=== PATIENT | male | born 1975 | race Caucasian/White ===

== ENCOUNTER 2021-03-24 12:22 | Emergency (ER) | payer MEDICARE ==
[~2021-03-24] VITALS: Ht 193 cm; Wt 110.0 kg
[~2021-03-24 12:22] MED LIST: EFFEXOR PO; FENT1PAT19 TP; GABA600T7 PO; HYDR-2769 PO; PRAZ1CAP2 PO; RELAFEN PO; RISP2TAB78 PO; TRAZ-123 PO; VALP250C PO
[2021-03-24 12:56] LABS: BILIRUBIN,URINE NEGATIVE (NEG); CLARITY,URINE CLEAR; COLOR,URINE YELLOW; NITRITE,URINE NEGATIVE (NEG); PH,URINE 7.5 (<5.0-8.0); PROTEIN,URINE NEGATIVE (NEG-TRACE)
--- NOTE | 2021-03-24 12:59 | PHYS DOC ---
Past Medical History Past Medical History: Other Additional Past Medical Histor: CHRONIC BACK PAIN, SELF CATHS,TBI (CARLOS LEE ROR ENGINEER) Past Surgical History: Other Additional Past Surgical Histo: BACK SURG X 2,STIMULATOR IN BACK,PLATES PLACED IN HEAD & FACE,ORTHOPEDIC (CARLOS LEE ROR ENGINEER) Smoking Status: Current Every Day Smoker Alcohol Use: None Drug Use: None (CARLOS LEE ROR ENGINEER) General Adult EDM: Chief Complaint: GROIN PAIN HPI: HPI: Patient is a 45 year old male who presents with last night began having right testicular pain that sharp shooting goes up into the groin. He states he is able to urinate. He denies any sexual intercourse or concern for sexual transmitted diseases. He denies any drainage from his penis. He is he does have some nausea but no vomiting. He denies fever, blood in urine, new back pain, chest pain, shortness of breath, headache, dizziness, vomiting, testicular injury. Rates his pain at a 7 out of 10. (CARLOS LEE ROR ENGINEER) Review of Systems: Review of Systems: Constitutional: Denies fever or chills. [] Eyes: Denies change in visual acuity. [] HENT: Denies nasal congestion or sore throat. [] Respiratory: Denies cough or shortness of breath. [] Cardiovascular: Denies chest pain or edema. [] GI: + Right lower abdominal pain,+nausea, denies vomiting, bloody stools or diarrhea. [] : Denies dysuria. + Right testicle pain [] Musculoskeletal: Denies back pain or joint pain. [] Integument: Denies rash. [] Neurologic: Denies headache, focal weakness or sensory changes. [] Endocrine: Denies polyuria or polydipsia. [] Lymphatic: Denies swollen glands. [] Psychiatric: Denies depression or anxiety. [] (CARLOS LEE ROR ENGINEER) Heart Score: C/O Chest Pain: No Risk Factors: Risk Factors: DM, Current or recent (<one month) smoker, HTN, HLP, family history of CAD, obesity. Risk Scores: Score 0 - 3: 2.5% MACE over next 6 weeks - Discharge Home Score 4 - 6: 20.3% MACE over next 6 weeks - Admit for Clinical Observation Score 7 - 10: 72.7% MACE over next 6 weeks - Early Invasive Strategies (CARLOS LEE APRN) Current Medications: Current Medications Medications (Trade) Dose Ordered Sig/Edwardo Start Time Stop Time Status Last Admin Dose Admin Fentanyl Citrate (Fentanyl 2ml Vial) 50 mcg 1X ONCE 03/24/21 13:00 03/24/21 13:01 (CARLOS LEE APRN) Allergies: Allergies: Allergies Coded Allergies Type Severity Reaction Last Updated Verified No Known Drug Allergies 09/03/15 No (CARLOS LEE APRN) Physical Exam: PE: Constitutional: Well developed, well nourished, no acute distress, non-toxic appearance. [] HENT: Normocephalic, atraumatic, bilateral external ears normal, oropharynx moist, no oral exudates, nose normal. [] Eyes: PERRLA, EOMI, conjunctiva normal, no discharge. [] Neck: Normal range of motion, no tenderness, supple, no stridor. [] Cardiovascular:Heart rate regular rhythm, no murmur [] Lungs & Thorax: Bilateral breath sounds clear to auscultation [] Abdomen: Bowel sounds normal, soft, no tenderness, no masses, no pulsatile masses. [] Skin: Warm, dry, no erythema, no rash. [] Back: No tenderness, no CVA tenderness. [] Extremities: No tenderness, no cyanosis, no clubbing, ROM intact, no edema. [] Neurologic: Alert and oriented X 3, normal motor function, normal sensory function, no focal deficits noted. [] Psychologic: Affect normal, judgement normal, mood normal. Normal physical exam [] (CARLOS LEE APRN) EKG: EKG: [] (CARLOS LEE APRN) Radiology/Procedures: Radiology/Procedures: [] Impression: [facility] [address] [place] [address] IMAGING REPORT Signed PATIENT: TARA NARANJO: [id number] : 1975 LOCATION: ER AGE: 45 SEX: M EXAM STATUS: REG ER ORD. PHYSICIAN: CARLOS LEE APRN REASON: testicle pain PROCEDURE: TESTICULAR/SCROTUM EXAM: Scrotal sonogram. HISTORY: Right testicular pain. TECHNIQUE: Short scale and color Doppler sonographic imaging of the scrotum with spectral waveform analysis was performed. COMPARISON: None. FINDINGS: The testes are normal in size and demonstrate normal symmetric blood flow. No focal testicular parenchymal lesion is seen. The epididymides are unremarkable. There are small bilateral hydroceles. There are loops of bowel within the right lower quadrant at the site of reported pain. The appendix is reportedly surgically absent. IMPRESSION: 1. Unremarkable testes. 2. Small bilateral hydroceles. Electronically signed by: Bre Jasmine MD (03/24/2021 1:42 PM) [id number] DICTATED and SIGNED BY: BRE JASMINE MD DATE: 03/24/21 [id number] [facility] [address] [place] [address] IMAGING REPORT Signed PATIENT: TARA NARANJO SACCOUNT: [id number] : 1975 LOCATION: ER AGE: 45 SEX: M EXAM STATUS: REG ER ORD. PHYSICIAN: CARLOS LEE APRN REASON: right groin sharp shooting and testicle pain PROCEDURE: CT ABDOMEN PELVIS WO CONTRAST PQRS Compliance Statement: One or more of the following individualized dose reduction techniques were utilized for this examination: 1. Automated exposure control 2. Adjustment of the mA and/or kV according to patient size 3. Use of iterative reconstruction technique CT ABDOMEN+PELVIS WO Clinical Indication: Reason: right groin sharp shooting and testicle pain / Spl. Instructions: / History: Comparison: Testicular ultrasound, same day. Technique: Helical CT imaging of the abdomen and pelvis is performed without IV or oral contrast. Findings: Evaluation of solid organs and bowel is limited without oral and IV contrast, decreasing sensitivity for detection of pathology. Lung bases are clear. Cardiac size is normal. Gallbladder is contracted, limiting evaluation. The liver, spleen, pancreas, adrenal glands, abdominal aorta, and kidneys are normal. Stomach is unremarkable. There is no small bowel obstruction. The appendix is not seen, no secondary signs of appendicitis. There is scattered stool in the colon. No colon wall thickening is seen. No abdominal adenopathy or free fluid. The urinary bladder is not well distended accentuating the wall thickness. The prostate and seminal vesicles are normal. There is no pelvic free fluid. There is no inguinal hernia or adenopathy. The testicles are better evaluated on same- day ultrasound. There is posterior fusion of L4-S1. The bilateral S1 screws are fractured. There is a left lower back battery pack and spinal stimulator leads there is minimal left convexity lumbar scoliosis. IMPRESSION: No acute abdominal or pelvic abnormality. Electronically signed by: Willard Agustin MD (03/24/2021 2:04 PM) [id number] DICTATED and SIGNED BY: WILLARD AGUSTIN MD DATE: 03/24/21 [id number] 0 (CARLOS LEE APRN) Course & Med Decision Making: Course & Med Decision Making Pertinent Labs and Imaging studies reviewed. (See chart for details) See HPI. Alert and oriented x4. Ambulatory to steady gait. Speaks in full clear sentences. Afebrile. Skin pink warm dry. No testicular swelling, cellulitis or tenderness. Abdomen is soft and nontender. No CVA tenderness. Blood work unremarkable. Urinalysis unremarkable. CT abdomen pelvis shows no acute findings. Ultrasound shows no acute findings but a couple of hydroceles. Patient agrees to follow-up at urology with his primary care physician. He has been take Tylenol or naproxen as needed. Patient agrees to this plan. [] (CARLOS LEE APRN) Dragon Disclaimer: Dragon Disclaimer: This electronic medical record was generated, in whole or in part, using a voice recognition dictation system. (CARLOS LEE APRN) Departure Departure Impression: Primary Impression: Groin pain Qualified Codes: R10.31 - Right lower quadrant pain Additional Impression: Testicle pain Qualified Codes: N50.811 - Right testicular pain Disposition: 01 HOME / SELF CARE / HOMELESS Condition: STABLE Referrals: RAFA PLUNKETT (PCP) Patient Instructions: Testicular Problems and Self-Exam Additional Instructions: Follow-up with urology or your primary care physician. Continue taking all medications as as prescribed. Attending Signature Attending Signature I have participated in the care of this patient and I have reviewed and agree with all pertinent clinical information above including history, exam, and recommendations. (ROBERT HINKLE MD) CARLOS LEE APRN Mar 24, 2021 12:59 ROBERT HINKLE MD Mar 26, 2021 06:43
[2021-03-24] MEDS ORDERED: fentaNYL PF VIAL 100 MCG/2 ML VIAL IVP ONE (13:00)
[2021-03-24 13:07] LABS: BACTERIA,URINE 0 /HPF (0-FEW); RBC,URINE 0 /HPF (0-2); WBC,URINE RARE /HPF (0-4)
[2021-03-24 13:18] LABS: BASO # 0.1 x10^3/uL (0.0-0.2); BASO % 1 % (0-3); EOS # 0.2 x10^3/uL (0.0-0.7); EOS % 3 % (0-3); HEMATOCRIT 39.8 % (39.0-53.0); HEMOGLOBIN 13.6 g/dL (13.0-17.5); LYMPH # 1.9 x10^3/uL (1.0-4.8); LYMPH % 22 % (24-48); MEAN CORPUSCULAR HEMOGLOBIN 31 pg (25-35); MEAN CORPUSCULAR HGB CONC 34 g/dL (31-37); MEAN CORPUSCULAR VOLUME 90 fL (79-100); MONO # 0.7 x10^3/uL (0.0-1.1); MONO % 8 % (0-9); NEUT # 5.8 x10^3/uL (1.8-7.7); NEUT % 66 % (31-73); PLATELET COUNT 197 x10^3/uL (140-400); RED CELL DISTRIBUTION WIDTH 14.1 % (11.5-14.5); WHITE BLOOD COUNT 8.7 x10^3/uL (4.0-11.0)
[2021-03-24 13:30] LABS: CALCIUM 8.4 mg/dL (8.5-10.1); CREATININE 1.1 mg/dL (0.7-1.3); GFR 72.1; POTASSIUM 4.4 mmol/L (3.5-5.1)
[2021-03-24 13:36] LABS: ALBUMIN 3.8 g/dL (3.4-5.0); ALBUMIN/GLOBULIN RATIO 1.5 (1.0-1.7); TOTAL BILIRUBIN 0.3 mg/dL (0.2-1.0); TOTAL PROTEIN 6.3 g/dL (6.4-8.2)
--- NOTE | 2021-03-24 13:44 | RAD ---
EXAM: Scrotal sonogram. HISTORY: Right testicular pain. TECHNIQUE: Short scale and color Doppler sonographic imaging of the scrotum with spectral waveform yee lysis was performed. COMPARISON: None. FINDINGS: The testes are normal in size and demonstrate normal symmetric blood flow. No focal testicu lar parenchymal lesion is seen. The epididymides are unremarkable. There are small bilateral hydrocel es. There are loops of bowel within the right lower quadrant at the site of reported pain. The append ix is reportedly surgically absent. IMPRESSION: 1. Unremarkable testes. 2. Small bilateral hydroceles. Electronically signed by: Bre Tracy MD (03/24/2021 1:42 PM) [id number]
--- NOTE | 2021-03-24 14:06 | RAD ---
PQRS Compliance Statement: One or more of the following individualized dose reduction techniques were utilized for this examinat ion: 1. Automated exposure control 2. Adjustment of the mA and/or kV according to patient size 3. Use of iterative reconstruction technique CT ABDOMEN+PELVIS WO Clinical Indication: Reason: right groin sharp shooting and testicle pain / Spl. Instructions: / His tory: Comparison: Testicular ultrasound, same day. Technique: Helical CT imaging of the abdomen and pelvis is performed without IV or oral contrast. Findings: Evaluation of solid organs and bowel is limited without oral and IV contrast, decreasing sensitivity for detection of pathology. Lung bases are clear. Cardiac size is normal. Gallbladder is contracted, limiting evaluation. The liver, spleen, pancreas, adrenal glands, abdomina l aorta, and kidneys are normal. Stomach is unremarkable. There is no small bowel obstruction. The appendix is not seen, no secondary signs of appendicitis. There is scattered stool in the colon. No colon wall thickening is seen. No ab dominal adenopathy or free fluid. The urinary bladder is not well distended accentuating the wall thickness. The prostate and seminal v esicles are normal. There is no pelvic free fluid. There is no inguinal hernia or adenopathy. The rhea ticles are better evaluated on same-day ultrasound. There is posterior fusion of L4-S1. The bilateral S1 screws are fractured. There is a left lower back battery pack and spinal stimulator leads there is minimal left convexity lumbar scoliosis. IMPRESSION: No acute abdominal or pelvic abnormality. Electronically signed by: Willard Agustin MD (03/24/2021 2:04 PM) [id number]
[2021-03-24 14:48] VITALS: BP 136/77
== END 2021-03-24 14:54 | disposition home or self-care (01) ==
LOC: ER 12:22
DX: R10.31 Right lower quadrant pain (principal); N50.811 Right testicular pain; R11.0 Nausea; G89.29 Other chronic pain; F17.200 Nicotine dependence, unspecified, uncomplicated; Z98.890 Other specified postprocedural states
CPT/HCPCS: 36415; 74176; 76870; 80053; 81001; 85025; 96374; 99285; J3010